=== PATIENT | male | born 2005 | race Caucasian/White ===

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

== ENCOUNTER 2025-01-01 12:07 | Emergency (ER) | payer SELFPAY | END 2025-01-01 12:53 | disposition home or self-care (01) | LOC: DL.ED 12:07 | DX: J93.9 Pneumothorax, unspecified (principal); F17.210 Nicotine dependence, cigarettes, uncomplicated | CPT/HCPCS: 71046; 93010; 99284 ==